=== PATIENT | male | born 1960 | race Two or more races ===

== ENCOUNTER 2021-08-29 13:55 | Inpatient (IN) | payer MEDICAID, OTHER ==
[~2021-08-29] VITALS: Ht 175.3 cm; Wt 98.3 kg
[2021-08-29 19:23] LABS: Basophils # (auto) 0 10 ^3/uL (0-0.2); Basophils % (auto) 0.2 % (0.0-2.0); Eosinophils # (auto) 0 10 ^3/uL (0-0.8); Hemoglobin 14.6 g/dL (13.5-17.5); Lymphocytes # (auto) 1.6 10 ^3/uL (0.4-5.4); Lymphocytes % (auto) 7.3 % (10.0-50.0); Mean Corpuscular Hemoglobin 29.2 pg (28.0-32.0); Mean Corpuscular Hgb Conc. 33.2 g/dL (32.0-36.0); Monocytes % (auto) 4.5 % (0.0-12.0); Neutrophils # (auto) 19.6 10 ^3/uL (1.6-8.6); Nucleated Red Blood Cells % 0.1 %; Red Cell Distribution Width 14.8 % (11.8-14.3); White Blood Cell 22.3 10^3/uL (4.4-10.8)
[2021-08-29 19:32] LABS: Albumin 2.7 g/dL (3.4-5.0); Anion Gap 6 (5-15); Blood Urea Nitrogen 44 mg/dL (7-18); Calcium 8.7 mg/dL (8.5-10.1); Carbon Dioxide 26 mmol/L (21-32); Chloride 101 mmol/L (98-107); Glucose 325 mg/dL (74-106); Sodium 133 mmol/L (136-145)
[2021-08-29 19:35] LABS: Alanine Aminotransferase 32 U/L (16-61); Alkaline Phosphatase 110 U/L (45-117); Aspartate Aminotransferase 48 U/L (15-37); BUN/Creatinine Ratio 14.6; Bilirubin, Total 0.6 mg/dL (0.2-1.0); GFR African American 27 mL/min; GFR Non-African American 23 mL/min; Total Protein 8.7 g/dL (6.4-8.2)
[2021-08-29] MEDS ORDERED: CLINDAMYCIN 600MG IV 50 ML IV ONE (20:00)
[2021-08-29] MEDS ORDERED: ASPirin 325 MG TAB PO ONE (20:00)
[2021-08-29] MEDS ORDERED: PIPERACILLIN-TAZOB 3.375GM 100 ML IV ONE (20:00)
[2021-08-29] MEDS ORDERED: VANCOMYCIN 1GM/250ML 250 ML IV ONE (20:00)
[2021-08-29 20:50] LABS: CRP High Sensitivity > 19.0 mg/dL (< 0.3)
[2021-08-30] MEDS ORDERED: ACETAMINOPHEN 325 MG TAB PO PRN (01:00)
[2021-08-30] MEDS ORDERED: ONDANSETRON HCL 4 MG/2 ML VIAL IV PRN (01:00)
[2021-08-30] MEDS ORDERED: NITROGLYCERIN 0.4 MG SL TAB SL PRN (01:00)
[2021-08-30] MEDS ORDERED: MORPHINE SULFATE INJECTION 2 MG/ML SYRG IV PRN (01:00)
[2021-08-30] MEDS ORDERED: TEMAZEPAM 15 MG CAP PO PRN (01:00)
[2021-08-30] MEDS ORDERED: DEXTROSE (50%) 50ML SYRG IV PRN ×2 (01:00→11:00)
[2021-08-30] MEDS ORDERED: ONDANSETRON HCL 4 MG/2 ML VIAL ONE (04:18)
[2021-08-30] MEDS ORDERED: ONDANSETRON HCL 4 MG/2 ML VIAL IV ONE (04:30)
[2021-08-30] MEDS ORDERED: CALCIUM CARB 500 MG CHEW TAB PO PRN (05:45)
[2021-08-30 05:50] LABS: Urine Amorphous Crystal MANY /hpf (None Seen); Urine Bacteria NONE SEEN /hpf (None Seen); Urine Blood 2+ /uL (Negative); Urine Mucus FEW (None Seen); Urine Specific Gravity 1.018 (1.001-1.035); Urine WBC 3 /hpf (0 - 3)
[2021-08-30] MEDS ORDERED: InsuLIN REG 1unit/0.01ml Soln (100units/ml) SC SCH (06:00)
[2021-08-30] MEDS ORDERED: ACCU-CHEK COMFORT CURVE STRIP VI SCH (06:00)
[2021-08-30] MEDS ORDERED: FUROSEMIDE 20 MG/2 ML VIAL IV SCH (06:00)
[2021-08-30] MEDS: CLINDAMYCIN 600MG IV 50 ML IV SCH ×3 (06:18→23:02)
[2021-08-30 08:53] VITALS: BP 115/63
[2021-08-30 09:19] VITALS: BP 115/63
[2021-08-30] MEDS ORDERED: PANTOPRAZOLE 40 MG TAB PO SCH (10:00)
[2021-08-30] MEDS ORDERED: HEPARIN SODIUM (PORCINE) 5000 UNITS/ML 1ML VIAL SC SCH (10:00)
[2021-08-30] MEDS ORDERED: CARVEDILOL 12.5 MG TAB PO SCH (10:00)
[2021-08-30] MEDS ORDERED: LOSARTAN POTASSIUM 25 MG TAB PO SCH (10:00)
[2021-08-30] MEDS ORDERED: SODIUM CHLORIDE 0.9% 1,000 ML IV SCH (10:15)
[2021-08-30] MEDS: ASPirin 81 mg TAB PO SCH (10:25)
[2021-08-30] MEDS: HYDROcodone-ACET 5/325MG TAB PO PRN ×2 (10:31→17:27)
[2021-08-30] MEDS ORDERED: OPTISON 3ml Vial for INJ IV ONE (11:12)
[2021-08-30 11:33] LABS: Cholesterol 194 mg/dL (< 200); HDL Cholesterol 33 mg/dL (40-59); LDL Cholesterol 122 mg/dL (< 100); Triglycerides 214 mg/dL (< 150)
[2021-08-30] MEDS: ACCU-CHEK COMFORT CURVE STRIP VI SCH ×3 (12:01→22:00)
[2021-08-30] MEDS: InsuLIN REG 1unit/0.01ml Soln (100units/ml) SC SCH ×3 (12:16→22:00)
[2021-08-30 13:00] VITALS: BP 110/66
[2021-08-30] MEDS: SODIUM CHLORIDE 0.9% 1,000 ML IV SCH (14:28)
[2021-08-30 14:32] LABS: Protein, Urine 92.7 mg/dL (0.0-11.9)
[2021-08-30 16:53] VITALS: BP 109/51
[2021-08-30 16:57] LABS: Hepatitis C Antibody Negative (Negative)
[2021-08-30] MEDS ORDERED: cefTRIAXone 1GM/50ML D5W 50 ML IV SCH (21:00)
[2021-08-30] MEDS: ATORVASTATIN 20 MG TAB PO SCH (22:00)
[2021-08-30] MEDS: INSULIN LANTUS (GLARGINE) 1 /0.01ml (100units/ml) SC SCH (22:00)
[2021-08-30 22:45] VITALS: BP 119/72
[2021-08-31 05:26] VITALS: BP 113/52
[2021-08-31] MEDS: ACCU-CHEK COMFORT CURVE STRIP VI SCH ×4 (06:08→22:23)
[2021-08-31] MEDS: CLINDAMYCIN 600MG IV 50 ML IV SCH (06:08)
[2021-08-31 06:15] LABS: Basophils # (auto) 0 10 ^3/uL (0-0.2); Basophils % (auto) 0.2 % (0.0-2.0); Eosinophils # (auto) 0.1 10 ^3/uL (0-0.8); Eosinophils % (auto) 0.2 % (0.0-7.0); Hematocrit 39.6 % (41.0-53.0); Hemoglobin 12.9 g/dL (13.5-17.5); Lymphocytes % (auto) 8.3 % (10.0-50.0); Mean Corpuscular Hgb Conc. 32.5 g/dL (32.0-36.0); Mean Corpuscular Volume 89.2 fL (80.0-100.0); Monocytes # (auto) 1.6 10 ^3/uL (0-1.3); Monocytes % (auto) 6.8 % (0.0-12.0); Neutrophils # (auto) 20.2 10 ^3/uL (1.6-8.6); Neutrophils % (auto) 84.5 % (37.0-80.0); Red Blood Cells 4.44 10^6/uL (4.5-5.90); Red Cell Distribution Width 14.9 % (11.8-14.3); White Blood Cell 23.9 10^3/uL (4.4-10.8)
[2021-08-31] MEDS: InsuLIN REG 1unit/0.01ml Soln (100units/ml) SC SCH ×4 (06:16→22:22)
[2021-08-31 06:21] LABS: INR 1.16 (0.9-1.15); Partial Thromboplastin Time 22.7 sec (23.6-33.0)
[2021-08-31 07:46] LABS: Alkaline Phosphatase 116 U/L (45-117); Anion Gap 9 (5-15); Aspartate Aminotransferase 19 U/L (15-37); BUN/Creatinine Ratio 18.4; Blood Urea Nitrogen 68 mg/dL (7-18); Carbon Dioxide 23 mmol/L (21-32); Chloride 99 mmol/L (98-107); GFR African American 22 mL/min; GFR Non-African American 18 mL/min; Glucose 325 mg/dL (74-106); Potassium 4.9 mmol/L (3.5-5.1); Sodium 131 mmol/L (136-145)
[2021-08-31 07:47] LABS: Alanine Aminotransferase 18 U/L (16-61); Bilirubin, Total 0.5 mg/dL (0.2-1.0); Calcium 8.3 mg/dL (8.5-10.1); Total Protein 7.5 g/dL (6.4-8.2)
[2021-08-31] MEDS: ASPirin 81 mg TAB PO SCH (08:56)
[2021-08-31] MEDS: SODIUM CHLORIDE 0.9% 1,000 ML IV SCH ×2 (08:56)
[2021-08-31] MEDS: ENOXAPARIN SOD 40 MG/0.4 ML SYRINGE SC SCH (08:57)
[2021-08-31 09:00] VITALS: BP 151/7
[2021-08-31] MEDS ORDERED: CLINDAMYCIN 900MG IV 50 ML IV ONE (09:45)
[2021-08-31] MEDS ORDERED: FUROSEMIDE 100 MG/10ML VIAL IV SCH (10:00)
[2021-08-31] MEDS ORDERED: MEROPENEM 1GM IVPB 100 ML IV ONE (11:00)
[2021-08-31] MEDS: ERGOCALCIFEROL 50,000 UNIT(1.25MG) CAP PO SCH (11:36)
[2021-08-31] MEDS ORDERED: CARVEDILOL 3.125 MG TAB PO ONE (12:00)
[2021-08-31 13:00] VITALS: BP 118/75
[2021-08-31 16:52] VITALS: BP 149/80
[2021-08-31] MEDS: CLINDAMYCIN 900MG IV 50 ML IV SCH ×2 (17:28→22:19)
[2021-08-31] MEDS: MEROPENEM 1GM IVPB 100 ML IV SCH (22:18)
[2021-08-31] MEDS: ATORVASTATIN 20 MG TAB PO SCH (22:19)
[2021-08-31] MEDS: CARVEDILOL 3.125 MG TAB PO SCH (22:20)
[2021-08-31] MEDS: INSULIN LANTUS (GLARGINE) 1 /0.01ml (100units/ml) SC SCH (22:23)
[2021-08-31 22:39] VITALS: BP 115/75
[2021-09-01] VITALS (7 sets, daily range): BP systolic 100–147; BP diastolic 59–89
[2021-09-01] MEDS: CLINDAMYCIN 900MG IV 50 ML IV SCH ×3 (05:07→21:43)
[2021-09-01] MEDS: InsuLIN REG 1unit/0.01ml Soln (100units/ml) SC SCH ×4 (06:05→21:46)
[2021-09-01] MEDS: ACCU-CHEK COMFORT CURVE STRIP VI SCH ×4 (06:06→21:48)
[2021-09-01 06:10] LABS: Basophils # (auto) 0.1 10 ^3/uL (0-0.2); Basophils % (auto) 0.4 % (0.0-2.0); Eosinophils # (auto) 0.2 10 ^3/uL (0-0.8); Eosinophils % (auto) 1.2 % (0.0-7.0); Hematocrit 35.5 % (41.0-53.0); Hemoglobin 11.7 g/dL (13.5-17.5); Lymphocytes # (auto) 2.4 10 ^3/uL (0.4-5.4); Lymphocytes % (auto) 11.9 % (10.0-50.0); Mean Corpuscular Hemoglobin 29.1 pg (28.0-32.0); Mean Corpuscular Volume 88.2 fL (80.0-100.0); Monocytes # (auto) 1.9 10 ^3/uL (0-1.3); Monocytes % (auto) 9.2 % (0.0-12.0); Neutrophils # (auto) 15.5 10 ^3/uL (1.6-8.6); Neutrophils % (auto) 77.3 % (37.0-80.0); Red Blood Cells 4.02 10^6/uL (4.5-5.90); Red Cell Distribution Width 14.6 % (11.8-14.3); White Blood Cell 20.1 10^3/uL (4.4-10.8)
[2021-09-01] MEDS: HYDROcodone-ACET 5/325MG TAB PO PRN ×2 (06:12→12:27)
[2021-09-01 06:21] LABS: Calcium 8.3 mg/dL (8.5-10.1); Potassium 4.5 mmol/L (3.5-5.1)
[2021-09-01 06:26] LABS: Bilirubin, Total 0.5 mg/dL (0.2-1.0); Total Protein 7.4 g/dL (6.4-8.2)
[2021-09-01] MEDS: FUROSEMIDE 100 MG/10ML VIAL IV SCH (10:00)
[2021-09-01] MEDS: MEROPENEM 1GM IVPB 100 ML IV SCH ×2 (10:04→23:17)
[2021-09-01] MEDS: CARVEDILOL 3.125 MG TAB PO SCH ×2 (10:05→21:44)
[2021-09-01] MEDS: ENOXAPARIN SOD 40 MG/0.4 ML SYRINGE SC SCH (10:05)
[2021-09-01] MEDS: ASPirin 81 mg TAB PO SCH (10:06)
[2021-09-01] MEDS: ATORVASTATIN 20 MG TAB PO SCH (21:43)
[2021-09-01] MEDS: INSULIN LANTUS (GLARGINE) 1 /0.01ml (100units/ml) SC SCH (21:47)
[2021-09-02 05:00] VITALS: BP 136/69
[2021-09-02] MEDS: CLINDAMYCIN 900MG IV 50 ML IV SCH ×3 (05:22→21:33)
[2021-09-02] MEDS: HYDROcodone-ACET 5/325MG TAB PO PRN ×3 (05:22→21:34)
[2021-09-02 05:27] LABS: Basophils # (auto) 0.1 10 ^3/uL (0-0.2); Basophils % (auto) 0.3 % (0.0-2.0); Eosinophils # (auto) 0.3 10 ^3/uL (0-0.8); Eosinophils % (auto) 1.8 % (0.0-7.0); Hemoglobin 13.3 g/dL (13.5-17.5); Lymphocytes # (auto) 2.3 10 ^3/uL (0.4-5.4); Lymphocytes % (auto) 14.2 % (10.0-50.0); Mean Corpuscular Hemoglobin 29.2 pg (28.0-32.0); Mean Corpuscular Volume 85.8 fL (80.0-100.0); Monocytes # (auto) 1.9 10 ^3/uL (0-1.3); Monocytes % (auto) 11.5 % (0.0-12.0); Neutrophils # (auto) 11.8 10 ^3/uL (1.6-8.6); Neutrophils % (auto) 72.2 % (37.0-80.0); Nucleated Red Blood Cells % 0.1 %; Red Blood Cells 4.55 10^6/uL (4.5-5.90); Red Cell Distribution Width 14.4 % (11.8-14.3); White Blood Cell 16.3 10^3/uL (4.4-10.8)
[2021-09-02 05:42] LABS: Calcium 8.2 mg/dL (8.5-10.1); Potassium 3.4 mmol/L (3.5-5.1)
[2021-09-02 05:46] LABS: BUN/Creatinine Ratio 29.2; Bilirubin, Total 0.4 mg/dL (0.2-1.0); Total Protein 7.5 g/dL (6.4-8.2)
[2021-09-02] MEDS: InsuLIN REG 1unit/0.01ml Soln (100units/ml) SC SCH ×4 (06:24→21:52)
[2021-09-02] MEDS: ACCU-CHEK COMFORT CURVE STRIP VI SCH ×4 (06:25→21:08)
[2021-09-02 08:46] VITALS: BP 124/73
[2021-09-02] MEDS: MEROPENEM 1GM IVPB 100 ML IV SCH ×2 (09:49→23:36)
[2021-09-02] MEDS: FUROSEMIDE 100 MG/10ML VIAL IV SCH (09:49)
[2021-09-02] MEDS: CARVEDILOL 3.125 MG TAB PO SCH ×2 (09:50→22:00)
[2021-09-02] MEDS: ASPirin 81 mg TAB PO SCH (09:50)
[2021-09-02] MEDS: ENOXAPARIN SOD 40 MG/0.4 ML SYRINGE SC SCH (09:51)
[2021-09-02] MEDS ORDERED: POTASSIUM CHL 20 Meq TABLET PO ONE (10:15)
[2021-09-02 12:37] VITALS: BP 127/76
[2021-09-02 17:00] VITALS: BP 126/69
[2021-09-02] MEDS: ATORVASTATIN 20 MG TAB PO SCH (21:33)
[2021-09-02] MEDS: INSULIN LANTUS (GLARGINE) 1 /0.01ml (100units/ml) SC SCH (21:37)
[2021-09-02 22:00] VITALS: BP 103/60
[2021-09-03 05:00] VITALS: BP 104/47
[2021-09-03] MEDS: CLINDAMYCIN 900MG IV 50 ML IV SCH ×3 (05:20→21:07)
[2021-09-03 05:31] LABS: Hematocrit 38.1 % (41.0-53.0); Hemoglobin 12.8 g/dL (13.5-17.5); Mean Corpuscular Hemoglobin 28.9 pg (28.0-32.0); Mean Corpuscular Hgb Conc. 33.5 g/dL (32.0-36.0); Mean Corpuscular Volume 86.3 fL (80.0-100.0); Red Blood Cells 4.42 10^6/uL (4.5-5.90); Red Cell Distribution Width 14.8 % (11.8-14.3); White Blood Cell 14.3 10^3/uL (4.4-10.8)
[2021-09-03 05:38] LABS: Albumin 1.9 g/dL (3.4-5.0); BUN/Creatinine Ratio 31.6; Calcium 8.6 mg/dL (8.5-10.1); Potassium 3.5 mmol/L (3.5-5.1)
[2021-09-03 05:41] LABS: Bilirubin, Total 0.4 mg/dL (0.2-1.0); Total Protein 7.4 g/dL (6.4-8.2)
[2021-09-03 05:47] LABS: Basophils % (manual) 0 (0.0-2.0); Blast Cells 0; Myelocytes % 0; Promyelocytes % 0; Reactive Lymphocytes 0
[2021-09-03] MEDS: ACCU-CHEK COMFORT CURVE STRIP VI SCH ×4 (06:04→21:09)
[2021-09-03] MEDS: InsuLIN REG 1unit/0.01ml Soln (100units/ml) SC SCH ×4 (06:05→21:23)
[2021-09-03] MEDS: HYDROcodone-ACET 5/325MG TAB PO PRN ×2 (07:55→14:29)
[2021-09-03 08:08] LABS: Band Neutrophils % (manual) 19; Eosinophils % (manual) 3 (0-7); Lymphocytes % (manual) 20 (10.0-50.0); Metamyelocytes % 1; Monocytes % (manual) 6 (0-12)
[2021-09-03 08:55] VITALS: BP 138/45
[2021-09-03] MEDS: ASPirin 81 mg TAB PO SCH (09:16)
[2021-09-03] MEDS: ENOXAPARIN SOD 40 MG/0.4 ML SYRINGE SC SCH (09:16)
[2021-09-03] MEDS: CARVEDILOL 3.125 MG TAB PO SCH ×2 (09:17→21:08)
[2021-09-03] MEDS ORDERED: DOCUSATE SOD 100 MG CAP PO ONE (09:45)
[2021-09-03] MEDS ORDERED: LACTULOSE 20Gm/30ML SOLN PO ONE (09:45)
[2021-09-03] MEDS: MEROPENEM 1GM IVPB 100 ML IV SCH ×2 (10:41→22:58)
[2021-09-03 13:00] VITALS: BP 107/46
[2021-09-03 16:56] VITALS: BP 126/65
[2021-09-03] MEDS: ATORVASTATIN 20 MG TAB PO SCH (21:08)
[2021-09-03] MEDS: INSULIN LANTUS (GLARGINE) 1 /0.01ml (100units/ml) SC SCH (21:09)
[2021-09-03 21:55] VITALS: BP 156/78
[2021-09-04] MEDS: HYDROcodone-ACET 5/325MG TAB PO PRN ×2 (04:31→17:26)
[2021-09-04 05:00] VITALS: BP 157/79
[2021-09-04] MEDS: CLINDAMYCIN 900MG IV 50 ML IV SCH ×3 (05:01→21:19)
[2021-09-04 05:24] LABS: Hematocrit 37.7 % (41.0-53.0); Hemoglobin 12.7 g/dL (13.5-17.5); Mean Corpuscular Hemoglobin 29.2 pg (28.0-32.0); Mean Corpuscular Hgb Conc. 33.7 g/dL (32.0-36.0); Mean Corpuscular Volume 86.8 fL (80.0-100.0); Red Blood Cells 4.34 10^6/uL (4.5-5.90); Red Cell Distribution Width 14.6 % (11.8-14.3)
[2021-09-04 05:27] LABS: Basophils % (manual) 0 (0.0-2.0); Blast Cells 0; Metamyelocytes % 0; Promyelocytes % 0; Reactive Lymphocytes 0
[2021-09-04 05:41] LABS: Potassium 3.9 mmol/L (3.5-5.1)
[2021-09-04 05:45] LABS: Albumin 1.9 g/dL (3.4-5.0); BUN/Creatinine Ratio 27.6; Calcium 8.4 mg/dL (8.5-10.1)
[2021-09-04 05:47] LABS: Bilirubin, Total 0.6 mg/dL (0.2-1.0); Total Protein 7.2 g/dL (6.4-8.2)
[2021-09-04] MEDS: ACCU-CHEK COMFORT CURVE STRIP VI SCH ×4 (05:57→21:19)
[2021-09-04] MEDS: InsuLIN REG 1unit/0.01ml Soln (100units/ml) SC SCH ×4 (06:12→21:26)
[2021-09-04 06:38] LABS: Band Neutrophils % (manual) 2; Eosinophils % (manual) 4 (0-7); Lymphocytes % (manual) 15 (10.0-50.0); Monocytes % (manual) 7 (0-12); Myelocytes % 1
[2021-09-04 09:17] VITALS: BP 137/71
[2021-09-04] MEDS: ASPirin 81 mg TAB PO SCH (11:25)
[2021-09-04] MEDS: CARVEDILOL 3.125 MG TAB PO SCH ×2 (11:26→21:20)
[2021-09-04] MEDS: ENOXAPARIN SOD 40 MG/0.4 ML SYRINGE SC SCH (11:26)
[2021-09-04] MEDS: MEROPENEM 1GM IVPB 100 ML IV SCH ×2 (11:26→23:00)
[2021-09-04 13:08] VITALS: BP 146/80
[2021-09-04 16:19] VITALS: BP 140/79
[2021-09-04] MEDS: ATORVASTATIN 20 MG TAB PO SCH (21:20)
[2021-09-04] MEDS: INSULIN LANTUS (GLARGINE) 1 /0.01ml (100units/ml) SC SCH (21:21)
[2021-09-04 22:03] VITALS: BP 129/60
[2021-09-05] MEDS: HYDROcodone-ACET 5/325MG TAB PO PRN ×2 (03:57→10:46)
[2021-09-05 05:04] VITALS: BP 147/87
[2021-09-05 05:20] LABS: Hematocrit 37.3 % (41.0-53.0); Hemoglobin 12.4 g/dL (13.5-17.5); Mean Corpuscular Hemoglobin 29.1 pg (28.0-32.0); Mean Corpuscular Hgb Conc. 33.4 g/dL (32.0-36.0); Mean Corpuscular Volume 87.1 fL (80.0-100.0); Red Blood Cells 4.28 10^6/uL (4.5-5.90); Red Cell Distribution Width 14.7 % (11.8-14.3); White Blood Cell 14.3 10^3/uL (4.4-10.8)
[2021-09-05 05:43] LABS: Basophils % (manual) 0 (0.0-2.0); Blast Cells 0; Eosinophils % (manual) 0 (0-7); Myelocytes % 0; Promyelocytes % 0; Reactive Lymphocytes 0
[2021-09-05] MEDS: ACCU-CHEK COMFORT CURVE STRIP VI SCH ×4 (06:03→22:02)
[2021-09-05] MEDS: CLINDAMYCIN 900MG IV 50 ML IV SCH ×3 (06:03→21:44)
[2021-09-05] MEDS: InsuLIN REG 1unit/0.01ml Soln (100units/ml) SC SCH ×4 (06:15→22:01)
[2021-09-05 07:40] LABS: Band Neutrophils % (manual) 9; Lymphocytes % (manual) 26 (10.0-50.0); Metamyelocytes % 1; Monocytes % (manual) 15 (0-12)
[2021-09-05 09:25] VITALS: BP 129/65
[2021-09-05] MEDS: ASPirin 81 mg TAB PO SCH (10:44)
[2021-09-05] MEDS: CARVEDILOL 3.125 MG TAB PO SCH ×2 (10:45→21:45)
[2021-09-05] MEDS: MEROPENEM 1GM IVPB 100 ML IV SCH ×2 (10:45→23:05)
[2021-09-05] MEDS: ENOXAPARIN SOD 40 MG/0.4 ML SYRINGE SC SCH (10:45)
[2021-09-05 12:52] VITALS: BP 128/60
[2021-09-05 16:42] VITALS: BP 129/67
[2021-09-05] MEDS: ATORVASTATIN 20 MG TAB PO SCH (21:45)
[2021-09-05 22:00] VITALS: BP 130/74
[2021-09-05] MEDS: INSULIN LANTUS (GLARGINE) 1 /0.01ml (100units/ml) SC SCH (22:01)
[2021-09-06 05:00] VITALS: BP 123/64
[2021-09-06] MEDS: CLINDAMYCIN 900MG IV 50 ML IV SCH ×3 (06:19→22:15)
[2021-09-06] MEDS: ACCU-CHEK COMFORT CURVE STRIP VI SCH ×4 (06:20→22:15)
[2021-09-06] MEDS: InsuLIN REG 1unit/0.01ml Soln (100units/ml) SC SCH ×4 (06:20→22:18)
[2021-09-06 09:29] VITALS: BP 140/72
[2021-09-06] MEDS: ASPirin 81 mg TAB PO SCH (10:27)
[2021-09-06] MEDS: levoFLOXacin 500 MG TAB PO SCH (10:28)
[2021-09-06] MEDS: ENOXAPARIN SOD 40 MG/0.4 ML SYRINGE SC SCH (10:28)
[2021-09-06] MEDS: CARVEDILOL 3.125 MG TAB PO SCH ×2 (10:28→22:15)
[2021-09-06] MEDS: HYDROcodone-ACET 5/325MG TAB PO PRN ×2 (11:12→15:06)
[2021-09-06 13:00] VITALS: BP 133/64
[2021-09-06 17:15] VITALS: BP 122/62
[2021-09-06 22:00] VITALS: BP 123/64
[2021-09-06] MEDS: ATORVASTATIN 20 MG TAB PO SCH (22:15)
[2021-09-06] MEDS: INSULIN LANTUS (GLARGINE) 1 /0.01ml (100units/ml) SC SCH (22:23)
[2021-09-07 05:00] VITALS: BP 115/51
[2021-09-07] MEDS: CLINDAMYCIN 900MG IV 50 ML IV SCH (05:53)
[2021-09-07] MEDS: ACCU-CHEK COMFORT CURVE STRIP VI SCH ×2 (06:18→13:06)
[2021-09-07] MEDS: InsuLIN REG 1unit/0.01ml Soln (100units/ml) SC SCH ×2 (06:18→13:10)
[2021-09-07 06:31] LABS: Basophils # (auto) 0.1 10 ^3/uL (0-0.2); Basophils % (auto) 0.4 % (0.0-2.0); Eosinophils # (auto) 0.2 10 ^3/uL (0-0.8); Eosinophils % (auto) 1.8 % (0.0-7.0); Hematocrit 37.5 % (41.0-53.0); Hemoglobin 12.5 g/dL (13.5-17.5); Lymphocytes # (auto) 2.6 10 ^3/uL (0.4-5.4); Lymphocytes % (auto) 19.1 % (10.0-50.0); Mean Corpuscular Hemoglobin 29.3 pg (28.0-32.0); Mean Corpuscular Hgb Conc. 33.2 g/dL (32.0-36.0); Mean Corpuscular Volume 88.1 fL (80.0-100.0); Monocytes % (auto) 7.3 % (0.0-12.0); Neutrophils # (auto) 9.5 10 ^3/uL (1.6-8.6); Neutrophils % (auto) 71.4 % (37.0-80.0); Nucleated Red Blood Cells % 0.1 %; Red Blood Cells 4.26 10^6/uL (4.5-5.90); Red Cell Distribution Width 14.5 % (11.8-14.3); White Blood Cell 13.4 10^3/uL (4.4-10.8)
[2021-09-07 06:48] LABS: Calcium 9.1 mg/dL (8.5-10.1); Potassium 5.1 mmol/L (3.5-5.1)
[2021-09-07 09:01] VITALS: BP 128/56
[2021-09-07] MEDS: ENOXAPARIN SOD 40 MG/0.4 ML SYRINGE SC SCH (09:22)
[2021-09-07] MEDS: HYDROcodone-ACET 5/325MG TAB PO PRN ×2 (09:22→15:31)
[2021-09-07] MEDS: levoFLOXacin 500 MG TAB PO SCH (09:22)
[2021-09-07] MEDS: ASPirin 81 mg TAB PO SCH (09:22)
[2021-09-07] MEDS: CARVEDILOL 3.125 MG TAB PO SCH (09:23)
[2021-09-07] MEDS: ERGOCALCIFEROL 50,000 UNIT(1.25MG) CAP PO SCH (09:23)
[2021-09-07] MEDS ORDERED: LEVO-28 PO (10:55)
[2021-09-07] MEDS ORDERED: CLIN300C8 PO (10:55)
[2021-09-07 12:02] VITALS: BP 128/56
== END 2021-09-07 15:00 | disposition home or self-care (01) | DRG 720 ==
LOC: ER 13:55 → TELE 08-30 01:00 → TELE-CENTR 08-30 08:25 → CENTRAL 09-01 23:14
PROVIDERS: ADMIT Nurse Practitioner; ATTEND Internal Medicine
PROC: 5A09357 Assistance with Respiratory Ventilation, Less than 24 Consecutive Hours, Continuous Positive Airway Pressure (ICD-10-PCS; principal; 2021-09-01)
PROC: 5A09457 Assistance with Respiratory Ventilation, 24-96 Consecutive Hours, Continuous Positive Airway Pressure (ICD-10-PCS; 2021-09-02)
PROC: 5A09357 Assistance with Respiratory Ventilation, Less than 24 Consecutive Hours, Continuous Positive Airway Pressure (ICD-10-PCS; 2021-09-05)
PROC: 5A09357 Assistance with Respiratory Ventilation, Less than 24 Consecutive Hours, Continuous Positive Airway Pressure (ICD-10-PCS; 2021-09-06)
DX: A41.9 Sepsis, unspecified organism (principal); N17.0 Acute kidney failure with tubular necrosis; I21.A1 Myocardial infarction type 2; I27.20 Pulmonary hypertension, unspecified; E44.0 Moderate protein-calorie malnutrition; I13.0 Hypertensive heart and chronic kidney disease with heart failure and stage 1 through stage 4 chronic kidney disease, or unspecified chronic kidney disease; I50.22 Chronic systolic (congestive) heart failure; E66.2 Morbid (severe) obesity with alveolar hypoventilation; Z68.43 Body mass index [BMI] 50.0-59.9, adult; L03.115 Cellulitis of right lower limb; E11.22 Type 2 diabetes mellitus with diabetic chronic kidney disease; E11.628 Type 2 diabetes mellitus with other skin complications; E11.65 Type 2 diabetes mellitus with hyperglycemia; J98.11 Atelectasis; M60.9 Myositis, unspecified; M20.40 Other hammer toe(s) (acquired), unspecified foot; E55.9 Vitamin D deficiency, unspecified; I42.9 Cardiomyopathy, unspecified; N18.9 Chronic kidney disease, unspecified; Z79.4 Long term (current) use of insulin; Z90.49 Acquired absence of other specified parts of digestive tract
CPT/HCPCS: 36415; 71045; 73630; 73700; 76775; 76881; 80048; 80053; 80061; 81001; 82306; 82570; 82962; 83036; 83880; 83970; 84100; 84132; 84156; 84300; 84484; 85007; 85025; 85027; 85610; 85652; 85730; 86141; 86803; 87040; 87340; 93005; 93306; 93925; 93971; 96365; 96367; 96368; 96372; 96375; 97110; 97116; 97530; G0378; J0696; J1815; J2185; J2405; J2543; J3490; Q9956